=== PATIENT | female | born 1990 | race Caucasian/White ===

== ENCOUNTER 2023-08-17 10:34 | Day surgery (SDC) | payer OTHER, SELFPAY ==
--- NOTE | 2023-08-16 15:07 | W.ANESCHARGE ---
Anesthesia Charges Start Date/Time Anesthesia Start Date: 08/17/23 Anesthesia Start Time: 12:41 Stop Date/Time Anesthesia Stop Date: 08/17/23 Anesthesia Stop Time: 13:29
[2023-08-17] VITALS (8 sets, daily range): BP systolic 127–143; BP diastolic 69–94; PULSE 69–88; RESP 14–73; TEMP 36.8–37.3; O2SAT 95–98; BMI 33.5
--- OUTSIDE RECORDS SUMMARY | 2023-08-17 10:36 | XMS_ITS | Clinical Summary ---
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 30 tablet 04/02/2020 Active albuterol (PROVENTIL) 0.083 % neb solutionIndication s:Moderate persistent asthma without complication Inhale 3 mL (2.5 mg) via a nebulizer every 4 hours if needed for Shortness Of Breath or Wheezing. 75 mL 5 12/02/2021 Active fluticasone (50 mcg per actuation) nasal solution (FLONASE)Indicatio ns:Allergic rhinitis, unspecified seasonality, unspecified trigger Inhale 1 Paterson into affected nostril(s) once daily. 16 g 11 12/25/2021 Active cetirizine (ZyrTEC) 10 mg tablet Take 1 Tablet (10 mg) by mouth once daily. 0 03/08/2022 Active clindamycin 1% (CLEOCIN-T) 1 % gelIndications:Acn e vulgaris Apply topically to affected area(s) two times daily. 60 g 01/17/2023 Active fluticasone propion-salmeteroL (Advair Diskus) 500-50 mcg/Dose diskus inhalerIndications :Moderate persistent asthma without complication Inhale 1 Puff by mouth two times daily. 180 Each 3 01/17/2023 Active montelukast (SINGULAIR) 10 mg tabletIndications: Moderate persistent asthma without complication Take 1 Tablet (10 mg) by mouth once daily. 90 Tablet 3 01/17/2023 Active SUMAtriptan (IMITREX) 100 mg tabletIndications: Migraine without aura and without status migrainosus, not intractable Take 1 Tablet (100 mg) by mouth every 2 hours if needed for Migraine for up to 10 doses. Give at minimum 2hrs apart. Max Dose: 200mg per 24hrs. 10 Tablet 6 06/20/2023 Active vit no.124/iron/folic ( VITAMIN ORAL) Take 1 Tablet by mouth once daily. 03/25/2024 Active Ventolin HFA 90 mcg/actuation inhalerIndications :Mild intermittent asthma without complication INHALE 2 PUFFS BY MOUTH EVERY 4 HOURS IF NEEDED FOR SHORTNESS OF BREATH OR WHEEZING. 18 g 3 07/28/2023 Active predniSONE (DELTASONE) 20 mg tabletIndications: Severe persistent asthma, unspecified whether complicated Take 1 Tablet (20 mg) by mouth once daily. 5 Tablet 08/15/2023 Active albuterol HFA (Ventolin HFA) 90 mcg/actuation inhalerIndications :Mild intermittent asthma without complication Inhale 2 Puffs by mouth every 4 hours if needed for Shortness Of Breath or Wheezing. 1 Each 3 12/02/2021 4 Discontinued cephalexin (KEFLEX) 500 mg capsuleIndications :Complicated UTI (urinary tract infection) Take 1 Capsule (500 mg) by mouth three times daily for 7 days. 21 Capsule 07/27/2023 4 Active Problems Problem Noted Date Diagnosed Date Major depressive disorder, r ecurrent, severe without psychotic features 08/15/2023 07/25/2023 Overview: Estimated Date of Delivery: 03/09/24 Patient's last menstrual period was 06/03/2023 (exact date). GBS: 28wk labs: Last Tdap: 09/19/18 Last Flu vaccine: 01/28/23 OB Labs: No Known Allergies OB History Para Term AB Living 3 2 2 0 0 2 SAB IAB Ectopic Multiple Live Births 0 0 0 0 2 # Outcome Date GA Lbr Chip/2nd Weight Sex Delivery Anes PTL Lv 3 Current 2 Term 12/04/18 39w6d F VAGINAL JUSTIN EPIDURAL N RAKAN 1 Term 02/01/16 41w2d 07:00 / 00:38 4.14 kg (9 lb 2 oz) F Vag EPIDURAL N RAKAN Complications: Shoulder Dystocia Name: Alice Apgar1: 7 Apgar5: 9 Past Medical History: . Date ASTHMA 01/04/2007 CTS (carpal tunnel syndrome) with both pregnancies Depression post Kidney stone 2020 Migraine headache Rh incompatibility Varicella as a child Past Surgical History: . Laterality Date NO PREVIOUS SURGERY Problems (from 07/25/23 to present) Problem Noted Resolved 07/25/2023 by 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, JOAO No 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 RN ....07/25/2023 3:52 PM Severe persistent asthma, unspecified whether co mplicated 01/17/2023 Anxiety 08/21/2013 Acne 08/21/2013 Unspecified asthma(493.90) 01/04/2007 Resolved Problems Problem Noted Date Diagnosed Date Resolved Date Low-lying placenta 07/24/2018 9 05/22/2018 02/19/2019 Overview: Component Latest Ref Rng & Units 09/19/2018 11/10/2018 HEMOGLOBIN 12.0 - 16.0 g/dL 12.8 MCV 80 - 100 fL 88 TREPONEMA PALLIDUM Negative Negative Culture No Group B Streptococcus isolated. Estimated Date of Delivery: 12/05/18 Patient's last menstrual period was 03/06/2018 (exact date). Last Tdap- 09/19/2018 Last Flu vaccine- 04/28/2018 Glucose (GTT) result- Component Latest Ref Rng & Units 09/19/2018 HEMOGLOBIN 12.0 - 16.0 g/dL 12.2 MCV 80 - 100 fL 88 GLUCOSE,GESTATIONAL 65 - 139 mg/dL 101 20 week US: IMPRESSION: 1.Transverse lie with the head on the maternal left side. 2.No intrinsic abnormalities noted on anatomic survey. 3.Composite ultrasound age 19 weeks 4 days with FANY of 12/14/2018 with an earlier established FANY of 12/05/2018. Posteriorly low-lying placenta No Known Allergies Obstetric History T1 L1 SAB0 TAB0 Ectopic0 Multiple0 Live Births1 # Outcome Date GA Lbr Chip/2nd Weight Sex Delivery Anes PTL Lv 2 Current 1 Term 02/01/16 41w2d 07:00 / 00:38 4.14 kg (9 lb 2 oz) F Vag EPIDURAL N RAKAN Name: Alice Complications: Shoulder Dystocia Apgar1: 7 Apgar5: 9 Create lab flowsheet for OB labs- Component Latest Ref Rng & Units 04/28/2018 04/28/2018 04/28/2018 1:22 PM 1:22 PM 1:22 PM HEMOGLOBIN 12.0 - 16.0 g/dL 13.1 MCV 80 - 100 fL 85 ANTIBODY SCREEN Negative Negative SPECIMEN EXPIRATION DATE/TIME 05/01/18 23:59 RUBELLA IGG ANTIBODY Positive 1.32 HIV-1/HIV-2 ANTIBODY Non-Reactive Non-Reactive ABORH A Rh Negative HBSAG Nonreactive Nonreactive TREPONEMA PALLIDUM Negative Negative Past Medical History: Diagnosis Date ? ? ASTHMA 01/04/2007 Past Surgical History: Procedure Laterality Date ? ? NO PREVIOUS SURGERY No data on file. 2nd Problems (from 04/28/18 to present) Problem Noted Resolved Encounter for supervision of other normal , first trimester 04/29/2018 by Celena Lemus MD No Anjali Stevens RNC.....05/22/2018 8:01 AM Encounter for supervision of other normal , third trimester 04/29/2018 02/19/2019 Rh negative status during pr egnancy in second trimester 10/24/2015 04/29/2017 Supervision of normal 07/04/2015 04/29/2017 Overview: Rh Negative. Unknown gender of baby TDaP 10/24/2015 Encounters Date Type Department Care Team Description 08/15/2023 2:15 PM CDT Preop Visit [facility] [address] [place] [address] Celena Lemus MD Pre-Op Exam ([facility] Dr. Cortes 08/17/23) 08/15/2023 Travel 08/11/2023 Medical Messaging [facility] [address] [place] [address] Celena Lemus MD Miscarriage 08/10/2023 1:00 PM CDT Ancillary Procedure [facility] [address] [place] [address] 08/10/2023 Travel 08/10/[address] [address] Celena Lemus MD Appointment 08/03/[address] [address] Celena Lemus MD Questions 08/03/[address] [address] Celena Lemus MD Refill Request (Ventolin Hfa) 07/27/[address] [address] Celena Lemus MD Refill Request (Ventolin Hfa) 07/27/2023 Orders Only [address] [address] Melly Wyman MD <No scans attached> 07/25/2023 2:30 PM CDT OB Encounter [address] [address] Education (OB) 07/25/[address] [address] 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, cotton 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 Management (For migraines in ) 07/25/2023 Travel 06/14/[address] [address] Celena Lemus MD Refill Request (Sumatriptan) from Last 3 Months Immunizations Name Administration Dates Next Due DTP 11/30/1989,1988,1988 ,1988 DTaP 07/01/1993 HIB HbOC (HibTITER) 05/30/1991 Hepatitis A (Peds) 11/24/2006,05/16/2006 Hepatitis B (Peds) 09/10/1999,04/10/1999, 999 Human Papilloma Virus Vaccine 10/10/2007, 007,05/16/2006 03/26/2007 Influenza, IIV4 01/28/2023, 2,03/13/2020,01/15/2019, 04/28/2018,03/15/2016,05/27/2015 MMR 12/13/2000,11/30/1989 Oral Polio Vaccine 07/01/1993,11/30/1989, 989,1988 Td (Age >=7 Years) 11/28/2002 Tdap 09/19/2018,10/24/2015,03/25/2012 Tuberculin (PPD) 01/30/2007 Family History Medical History Relation Name Comments Asthma Brother Asthma Sister Relation Name Status Comments Brother Sister Social History Tobacco Use Types Packs/Day Years Used Date Smoking Tobacco: Former Cigarettes 1 10 0 09/23/2004 - 09/23/2014 Smokeless Tobacco: Never Tobacco Cessation:Counseling Given: Not Answered Alcohol Use Standard Drinks/Week Comments Not Currently 0 (1 standard drink = 0.6 oz pur e alcohol) monthly PHQ-2 Answer Date Recorded PHQ-2 TOTAL SCORE 6 04/05/2023 Social Connections Answer Date Recorded Frequency of Communication with Friends and Fami ly 0 01/17/2023 Financial Resource Strain Answer Date R ecorded Difficulty of Paying Living Expenses 3 01/17/2023 Difficulty of Paying Living Expenses Not on file 01/17/2023 Food Insecurity Answer Date Recorded Worried About Running Out of Food in the Last Ye ar 1 01/17/2023 Transportation Needs Answer Date Record ed Lack of Transportation (Medical) 1 01/17/2023 Housing Stability Answer Date Recorded Unable to Pay for Housing in the Last Year 1 01/17/2023 Sex and Gender Information Value Date Recorded Sex Assigned at Not on file Gender Identity Not on file Sexual Orientation Not on file Obstetrics History Para Term AB IAB SAB Ectopic Multiple Livin g Live Births 3 2 2 2 2 Date Outcome GA Total Labor Labor/2nd/3rd Weight Sex Delivery Anes PTL Rakan A1 A5 Name Cl in 01/31 Term 41w 2d 7h 44m 7h 00m/0h 38m/0h 06m 4.14 kg (9 lb 2 oz) F Vag Epidu ral N Dottie ng 7 9 Mansi sa Tappe r Complications:Shoulder Dysto hawa 12/04 Term 39w 6d 5h 00m F VAGINAL JUSTIN Epidu ral N Dottie ng Tappe r Complications:None Delivery Location:[facility] Summary Episode Dates Number of Fetuses Estimated Date of Delivery 07/25/2023 - Present (08/17/2023) 03/09/2024 (set by 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 RN on 07/25/2023 based on Alternate FANY Entry) Dating Summary Based On FANY GA Diff Last Menstrual Period on 06/03/2023 (Exact Date) 03/09/2024 Same Alternate FANY Entry 03/09/2024 Working Vitals Pregravid Weight Height TWG (As of 08/17/2023) Pregrav id BMI 1.695 m (5' 6.75) Notes Progress Notes - OB Encounte r - 07/25/2023 - GA:7w3d 07/25/2023 - 7w3d - 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 RN SUBJECTIVE: Nguyen Sandhu is a 33 y.o. female, , who presents for confirmation and ob education. Patient presents to the clinic alone. Had positive test at home. This was Planned, Desired. Patient was not on contraception. 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 MENSTRUAL HISTORY: Patient's last menstrual period was 06/03/2023 (exact date).: Cycle Regularity: regular, every 31 days Past Medical History: . Date ASTHMA 01/04/2007 CTS (carpal tunnel syndrome) with both pregnancies Depression post Kidney stone 2020 Migraine headache Rh incompatibility Varicella as a child OB History Para Term AB Living 3 2 2 2 SAB IAB Ectopic Multiple Live Births 2 # Outcome Date GA Lbr Chip/2nd Weight Sex Delivery Anes PTL Lv 3 Current 2 Term 12/04/18 39w6d F VAGINAL JUSTIN EPIDURAL N RAKAN 1 Term 02/01/16 41w2d 07:00 / 00:38 4.14 kg (9 lb 2 oz) F Vag EPIDURAL N RAKAN Complications: Shoulder Dystocia 5P'S SUBSTANCE ABUSE SCREEN FOR ALCOHOL, DRUGS AND TOBACCO: Did any of your parents have a problem with using alcohol or drugs? No Do any of your friends (peers) have problems with drug or alcohol use? No Does your partner have a problem with drug or alcohol use? No Before you knew you were , how often did you drink beer, wine, wine coolers or liquor or use any kind of drug? Rarely In the past month, how often did you drink beer, wine, wine coolers or liquor or use any kind of drug? Not at all How much did you smoke, vape or use tobacco or nicotine in any form before you knew you were ? Don't Smoke, Vape or use Tobacco Genetic Screening Genetic Screening/Teratology Counseling- Includes patient, baby's father, or anyone in either family with: Patient's age 35 years or older as of estimated date of delivery: Yes Thalassemia (Kyrgyz, Kyrgyz, Mediterranean, or background): MCV less than 80: No Neural tube defect (Meningomyelocele, Spina bifida, or Anencephaly): No Congenital heart defect: No Down syndrome: No Librado-Sachs (Ashkenazi Holiness, Cajun, Syriac Palestinian): No Urszula disease (Ashkenazi Holiness): No Familial dysautonomia (Ashkenazi Holiness): No Sickle cell disease or trait (): No Hemophilia or other blood disorders: No Muscular dystrophy: No Cystic fibrosis: No Michele's chorea: No Intellectual disability and/or autism: Yes (Comment: dad's sister) If yes, was the person tested for Fragile X?: No Other inherited genetic or chromosomal disorder: No Maternal metabolic disorder (eg. Type 1 diabetes, PKU): No Patient or baby's father had child with defects not listed above: No Recurrent loss, or a stillbirth: No Medications (including supplements, vitamins, herbs, or OTC drugs)/illicit/recreational drugs/alcohol since last menstrual period: No CURRENT MEDICATIONS: Current Outpatient Medications Medication Sig albuterol (PROVENTIL) 0.083 % neb solution Inhale 3 mL (2.5 mg) via a nebulizer every 4 hours if needed for Shortness Of Breath or Wheezing. albuterol HFA (Ventolin HFA) 90 mcg/actuation inhaler Inhale 2 Puffs by mouth every 4 hours if needed for Shortness Of Breath or Wheezing. cetirizine (ZyrTEC) 10 mg tablet Take 1 Tablet (10 mg) by mouth once daily. clindamycin 1% (CLEOCIN-T) 1 % gel Apply topically to affected area(s) two times daily. fluticasone (50 mcg per actuation) nasal solution (FLONASE) Inhale 1 Paterson into affected nostril(s) once daily. fluticasone propion-salmeteroL (Advair Diskus) 500-50 mcg/Dose diskus inhaler Inhale 1 Puff by mouth two times daily. meclizine (ANTIVERT) 25 mg tablet Take 1 tablet by mouth 3 times daily if needed. montelukast (SINGULAIR) 10 mg tablet Take 1 Tablet (10 mg) by mouth once daily. [START ON 03/25/2024] vit no.124/iron/folic ( VITAMIN ORAL) Take 1 Tablet by mouth once daily. SUMAtriptan (IMITREX) 100 mg tablet Take 1 Tablet (100 mg) by mouth every 2 hours if needed for Migraine for up to 10 doses. Give at minimum 2hrs apart. Max Dose: 200mg per 24hrs. No current facility-administered medications for this visit. Medications have been reviewed by me and are current to the best of my knowledge and ability. ALLERGIES: Patient has no known allergies. OBJECTIVE: Ht 1.695 m (5' 6.75) Wt 93.7 kg (206 lb 9.6 oz) LMP 06/03/2023 (Exact Date) BMI 32.60 kg/m?? ,URINE (no units) Date Value 07/11/2020 Negative ASSESSMENT/PLAN: No diagnosis found. EDUCATION/PATIENT INSTRUCTIONS - Advised patient to start/continue vitamin. - Discussed risk of using alcohol, tobacco, other drugs in . - Discussed healthy lifestyle in . - Provided copy of [facility] book and book inserts, discussed elsh-tso-syhhjbe medications, and follow up. - Encouraged patient to call clinic at [phone] with any vaginal bleeding, fluid leaking from vagina, severe abdominal pain, nausea with severe vomiting, fever higher than 100.4F, painful urination, headache not relieved by Tylenol, or other concerns - labs completed with today's visit. 07/25/2023 - Patient informed to schedule 1st trimester dating ultrasound between 7-10 weeks. - Initial OB appointment with FP/OB scheduled. PHQ-9, and COVID-19 vaccine discussion to be completed at this visit. Future Appointments Date Time Provider Department Center 08/22/2023 3:30 PM Celena Lemus MD [facility] 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 RN .................... 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 Oxygen Saturation 99% 08/15/2023 2:21 PM CDT Inhaled Oxygen Concentration - - Weight 94.3 kg (208 lb) 08/15/2023 2:21 PM CDT Height 169.5 cm (5' 6.75) 08/15/2023 2:21 PM CD T Body Mass Index 32.82 08/15/2023 2:21 PM CDT Plan of Treatment Upcoming Encounters Date Type Department Care Team (Late st Contact Info) Description 08/22/2023 3:30 PM CDT OB Encounter [facility] [address] [place] [address] Celena Lemus MD [address] [place] [address] Health Maintenance Due Date Last Done Comments Pneumococcal series for age 6-64 (1 of 2 - PCV) 1994 COVID-19 vaccine series ( season) 2022 Pap test for age 21-65 05/19/2023 9, 05/19/2018, 07/04/2015, Additional history exists Influenza for age 9-49 12/25/2023 3, 02/11/2022, 03/13/2020, Additional history exists Depression screening for age 12+ 04/05/2024 04/05/2023, 03/29/2023, 03/10/2023, Additional history exists BMI (ht and wt on same day) for age 18+ 08/14/2024 08/15/2023, 07/25/2023, 01/17/2023, Additional history exists Tetanus booster 09/19/2028 09/19/2018, 04/2015, 03/25/2012, Additional history exists Tdap Completed 09/19/2018, 04/2015, 03/25/2012 HIV for age 15-65 Completed 07/25/2023, , 05/27/2015 Hepatitis C screening for ag e 18-79 Completed 07/25/2023, 05/27/2015 Procedures Procedure Name Priority Date/Time Associated Diagnosis Comments US OB 1ST TRI SINGLE TA AND TV Routine 08/10/2023 1:24 PM CDT Less than 8 weeks gestation of UA W/ SEDIMENT EXAM REFLEXED PER CRITERIA Routine 07/25/2023 3:43 PM CDT Less than 8 weeks gestation of GC CHLAMYDIA TRACH PROBE Routine 07/25/2023 3:43 PM CDT Less than 8 weeks gestation of URINE CULTURE Routine 07/25/2023 3:43 PM CDT Less than 8 weeks gestation of TYPE & SCREEN Routine 07/25/2023 3:40 PM CDT Less than 8 weeks gestation of ANTI HCV Routine 07/25/2023 3:40 PM CDT Less than 8 weeks gestation of HBSAG (HBS) Routine 07/25/2023 3:40 PM CDT Less than 8 weeks gestation of TREPONEMA PALLIDUM Routine 07/25/2023 3: 40 PM CDT Less than 8 weeks gestation of RUBELLA IMMUNE STATUS Routine 07/25/2023 3:40 PM CDT Less than 8 weeks gestation of ANTI HIV 1/2 Routine 07/25/2023 3:40 PM CDT Less than 8 weeks gestation of CBC W PLT NO DIFF Routine 07/25/2023 3:4 0 PM CDT Less than 8 weeks gestation of HORTICULTURE PROFESSOR THIN PREP PAP SCREEN IMAGED Routine 05/19/2018 9:15 AM SOFTWARE TOOLS ENGINEER Cervical cancer screening from Last 3 Months or Most Recently Relevant to Health Maintenance Results * US OB 1ST TRI SINGLE TA AND TV (08/10/2023 1:24 PM CDT) Anatomical Region Laterality Modality Ultrasound 08/10/2023 2:02 PM CDT Impressions 08/10/2023 2:02 PM CDT Single intrauterine gestational sac with embryo present and crown-rump length measuring 1.5 centimeters, corresponding with a 7 week and 6 day gestation. No heart tones are noted. Findings are consistent with failure. Dictated by Babatunde Scott MD @ 08/10/2023 2:02:16 PM (Electronically Signed) Narrative 08/10/2023 2:02 PM CDT For Patients: ??As a result of the 21st Century Cures Act, medical imaging exams and procedure reports are released immediately into your electronic medical record. ??You may view this report before your referring provider. ??If you have questions, please contact your health care provider. INDICATION: Dating and viability TECHNIQUE: Ultrasound OB pelvis transabdominal and transvaginal. ??Real-time parada-scale imaging of the pelvis was performed. COMPARISON: None. FINDINGS: There is a single intrauterine gestation. The embryo`s crown rump length measurement of 1.5 cm and corresponds to a gestational age of 7 weeks and 6 days. No heart tones are noted. There is a normal appearing yolk sac. There is a small perigestational hemorrhage measuring approximally 1.2 x 0.6 x 2.3 centimeters. The ovaries are of normal size. There are no suspicious fluid collections noted in the cul-de-sac. Procedure Note Babatunde Scott MD - 08/10/2023 For Patients: As a result of the Cures Act, medical imagingexams and procedure reports are released immediately into your electronicmedical record. You may view this report before your referring provider.If you have questions, please contact your health care provider. INDICATION: Dating and viability TECHNIQUE: Ultrasound OB pelvis transabdominal and transvaginal. Egnh-aqvucatd-polhn imaging of the pelvis was performed. COMPARISON: None. FINDINGS: There is a single intrauterine gestation. The embryo`s crown rump lengthmeasurement of 1.5 cm and corresponds to a gestational age of 7 weeks and6 days. No heart tones are noted. There is a normal appearing yolk sac. There is a small perigestationalhemorrhage measuring approximally 1.2 x 0.6 x 2.3 centimeters. The ovaries are of normal size. There are no suspicious fluid collectionsnoted in the cul-de-sac. IMPRESSION: Single intrauterine gestational sac with embryo present and crown-rumplength measuring 1.5 centimeters, corresponding with a 7 week and 6 daygestation. No heart tones are noted. Findings are consistent withpregnancy failure. Dictated by Babatunde Scott MD @ 08/10/2023 2:02:16 PM (Electronically Signed) Melly Wyman MD US * HORTICULTURE PROFESSOR PROBE - GC CHLAMYDIA DNA PCR [[id number]] (07/25/2023 3:43 PM CDT) CHLAMYDIA PROBE Negative 10:55 AM CDT [facility] N GONORRHOEAE PROBE Negative 07/26/2023 10:55 AM CDT [facility] Other URINE SPECIMEN / Unknown Non-Blood / Unknown 07/25/2023 3:43 PM CDT 07/25/2023 3:43 PM CDT Melly DOSS GY Performing Organization Address City/State/[facility] Co de Phone Number [facility] [address] [place] [address], * (ABNORMAL) URINE CULTURE (07/25/2023 3:43 PM CDT) CULTURE RESULT(A) 07/28/2023 7:04 AM CDT [facility] CULTURE >100,000 CFU/mL Klebsiella pneumoniae 07/28/2023 7:04 AM CDT [facility] Urine URINE SPECIMEN / Unknown Non-Blood / Unknown 07/25/2023 3:43 PM CDT 07/25/2023 3:43 PM CDT Narrative Organism Antibiotic Method Susceptibility Klebsiella pneumoniae TRIMETHOPRIM/SULF <=1/19: S Klebsiella pneumoniae AMPICILLIN >=32: R Klebsiella pneumoniae CEFAZOLIN-UC <=4: S Comment:Cefazolin-UC interpretations are for therapy of uncomplicated UTIs due to E.coli, K.pneumoniae, or P.mirablis. Cefazolin breakpoint is used as a surrogate to predict results for the oral agents - cefdinir, cefuroxime, and cephalexin, when used for therapy of uncomplicated UTIs due to E coli, K, pneumoniae, and P. mirabilis. The FDA recommends cefadroxil susceptibility can be deduced from cefazolin. Klebsiella pneumoniae GENTAMICIN <=1: S Klebsiella pneumoniae CEFTRIAXONE <=1: S Klebsiella pneumoniae CEFTAZIDIME <=1: S Klebsiella pneumoniae LEVOFLOXACIN <=0.12: S Klebsiella pneumoniae CIPROFLOXACIN <=0.25: S Klebsiella pneumoniae PIPERACILLIN/TAZO <=4: S Klebsiella pneumoniae AMPICILLIN/SULBACTAM 8: S Klebsiella pneumoniae CEFEPIME <=1: S Klebsiella pneumoniae TOBRAMYCIN <=1: S Klebsiella pneumoniae MEROPENEM <=0.25: S Klebsiella pneumoniae NITROFURANTOIN 64: I Melly Sarahi Wyman MD MICROBIOLO GY [facility] [address] [place] [address], [place] * URINALYSIS W REFLEX MICROSCOPIC IF POSITIVE [91944.2] (07/25/2023 3:43 PM CDT) COLOR Yellow Yellow Color 07/25/2023 3:53 PM CDT [facility] CLARITY Clear Clear Clarity 07/25/2023 3:53 PM CDT [facility] SPECIFIC GRAVITY,URINE 1.015 1.010, 1.015, 1.020, 1.025 07/25/2023 3:53 PM CDT [facility] PH,URINE 6.0 6.0, 7.0, 8.0, 5.5, 6.5, 7.5, 8.5 07/25/2023 3:53 PM CDT [facility] UROBILINOGEN, QUALITATIVE Normal Normal EU/dl 07/25/2023 3:53 PM CDT [facility] PROTEIN, URINE Negative Negative mg/dL 07/25/2023 3:53 PM CDT [facility] GLUCOSE, URINE Negative Negative mg/dL 07/25/2023 3:53 PM CDT [facility] KETONES,URINE Negative Negative mg/dL 07/25/2023 3:53 PM CDT [facility] BILIRUBIN,URI NE Negative Negative 07/25/2023 3:53 PM CDT [facility] OCCULT BLOOD,URINE Negative Negative 07/25/2023 3:53 PM CDT [facility] NITRITE Negative Negative 07/25/2023 3:53 PM CDT [facility] LEUKOCYTE ESTERASE Negative Negative 07/25/2023 3:53 PM CDT [facility] Urine URINE SPECIMEN / Unknown Non-Blood / Unknown 07/25/2023 3:43 PM CDT 07/25/2023 3:43 PM CDT Melly Wyman MD URINE Performing Organization Address City/[facility]/ZIP Co de Phone Number [facility] [address] [place] [address], [place] [phone] * TREPONEMA PALLIDUM (07/25/2023 3:40 PM CDT) TREPONEMA PALLIDUM Non-Reacti ve Non-Reacti ve 07/26/2023 2:39 PM CDT [facility] Blood BLOOD SPECIMEN / Unknown Venipuncture / Unknown 07/25/2023 3:40 PM CDT 07/25/2023 3:41 PM CDT Melly Wyman MD SEND OUTS Performing Organization Address City/[facility]/ZIP Co de Phone Number [facility] [address] [place] [address], * RUBELLA IMMUNE STATUS (07/25/2023 3:40 PM CDT) Pathologist [facility] INTERPRETATION Positive 07/27/2023 8:34 AM CDT [facility] Comment:Presence of detectab le IgG antibodies. A positive result generally indicates exposure to the virus or previous vaccination, but is not an indication of active infection or stage of disease. RUBELLA IGG ANTIBODY 1.04 >=1.00 Index 07/27/2023 8:34 AM CDT [facility] Blood BLOOD SPECIMEN / Unknown Venipuncture / Unknown 07/25/2023 3:40 PM CDT 07/25/2023 3:41 PM CDT Narrative [facility] - 07/27/2023 8:34 AM CDT ??<0.90 ? Negative ?? 0.90-0.99 ?? Equivocal >=1.0 ?Positive Melly Wyman MD SEND OUTS [facility] [address] [place] [address], * TYPE AND SCREEN (07/25/2023 3:40 PM CDT) ABORH A Rh Negative 07/25/2023 9:42 PM CDT [facility] BLOOD BANK ANTIBODY SCREEN Negative Negative 07/25/2023 9:42 PM CDT [facility] BLOOD BANK SPECIMEN EXPIRATION DATE/TIME 07/28/23 23:59 07/25/2023 9:42 PM CDT [facility] Blood BLOOD SPECIMEN / Unknown Venipuncture / Unknown 07/25/2023 3:40 PM CDT 07/25/2023 3:42 PM CDT Melly Wyman MD BLOOD BANK [facility] B[facility]OD BANK [address] [place] [address], * HBSAG (HBS) (07/25/2023 3:40 PM CDT) Pathologist [facility] HBSAG Nonreactive Nonreactive 07/26/2023 2:31 PM CDT [facility] Blood BLOOD SPECIMEN / Unknown Venipuncture / Unknown 07/25/2023 3:40 PM CDT 07/25/2023 3:41 PM CDT Melly Wyman MD SEND OUTS [facility] [address] [place] [address], * ANTI HCV (07/25/2023 3:40 PM CDT) HEPATITIS C ANTIBODY Non-Reacti ve Non-React janis 07/26/2023 2:29 PM CDT [facility] Comment:Please note, per www .CDC.gov: If a patient is known to be at high risk of HCV infection, or is symptomatic, and the physician's suspicion of HCV infection is high, HCV RNA testing is often employed and is of diagnostic value, even after an initial negative anti-HCV test result. Blood BLOOD SPECIMEN / Unknown Venipuncture / Unknown 07/25/2023 3:40 PM CDT 07/25/2023 3:41 PM CDT Melly Wyman MD SEND OUTS [facility] [address] [place] [address], * CBC W PLT NO DIFF (07/25/2023 3:40 PM CDT) WHITE BLOOD COUNT 8.5 4.5 - 11.0 thou/cu mm 07/25/2023 3:53 PM CDT [facility] RED BLOOD COUNT 4.63 4.00 - 5.20 mil/cu mm 07/25/2023 3:53 PM CDT [facility] HEMOGLOBIN 13.5 12.0 - 16.0 g/dL 07/25/2023 3:53 PM CDT [facility] HEMATOCRIT 39.2 33.0 - 51.0 % 07/25/2023 3:53 PM CDT [facility] MCV 85 80 - 100 fL 07/25/2023 3:53 PM CDT [facility] MCH 29.2 26.0 - 34.0 pg 07/25/2023 3:53 PM CDT [facility] MCHC 34.4 32.0 - 36.0 g/dL 07/25/2023 3:53 PM CDT [facility] RDW 13.9 11.5 - 15.5 % 07/25/2023 3:53 PM CDT [facility] PLATELET COUNT 285 140 - 440 thou/cu mm 07/25/2023 3:53 PM CDT [facility] MPV 9.5 6.5 - 11.0 fL 07/25/2023 3:53 PM CDT [facility] Blood BLOOD SPECIMEN / Unknown Venipuncture / Unknown 07/25/2023 3:40 PM CDT 07/25/2023 3:41 PM CDT Melly Wyman MD HEMATOLOGY [facility] [address] [place] [place] [address], * ANTI HIV 1/2 (07/25/2023 3:40 PM CDT) [facility] HIV-1/HIV-2 SCREEN Non-Reacti ve Non-Reacti ve 07/26/2023 2:31 PM CDT [facility] Comment:HIV-1 p24 and HIV-1/ HIV-2 Ab Not Detected. Blood BLOOD SPECIMEN / Unknown Venipuncture / Unknown 07/25/2023 3:40 PM CDT 07/25/2023 3:41 PM CDT Melly Wyman MD SEND OUTS [facility] [address] [place] [address], * HORTICULTURE PROFESSOR THIN PREP PAP SCREEN IMAGED (05/19/2018 9:15 AM SOFTWARE TOOLS ENGINEER) [facility] Case Report Gynecologic Cytology Report ? Case: [id number] ? Authorizing Provider: ??Celena Lemus MD Collected: ? 05/19/2018 0915 ? Ordering Location: ? [facility] ?? Received: ?05/19/2018 0920 ? Clinic ? First Screen: ?Jacob, Ann E ? Specimen: ?HORTICULTURE PROFESSOR ThinPrep Vial Screening, Cervical ? 05/30/2018 2:08 PM [facility] INTERPRETATION/ RESULT NEGATIVE FOR INTRAEPITHELIAL LESION OR MALIGNANCY (NIL) (none) 05/30/2018 2:08 PM [facility] IMEN ADEQUACY Satisfactory for evaluation Endocervical component present 05/30/2018 2:08 PM [facility] HPV REQUEST HPV and PAP 05/30/2018 2:08 PM SOFTWARE TOOLS ENGINEER [facility] Date of LMP 03/06/18 05/30/2018 2:08 PM [facility] Last Pap Date 07/04/15 05/30/2018 2:08 PM SOFTWARE TOOLS ENGINEER [facility] Last Pap Result NIL 9 2:08 PM [facility] Abnormal Pap or [place] Bx in last 5 years No 05/30/2018 2:08 PM [facility] Menstrual Status Irregular Periods 05/30/2018 2:08 PM SOFTWARE TOOLS ENGINEER [facility] [place] Bx Done Today No 05/30/2018 2:08 PM [facility] Additional Information None given 05/30/2018 2:08 PM [facility] Automated Review Successful 05/30/2018 2:08 PM [facility] Comment:Specimen processed s uccessfully by automated manager of finance device, ThinPrep Imaging System, [employer] ANCILLARY TESTING HORTICULTURE PROFESSOR HPV Ordered, Please see separate report 05/30/2018 2:08 PM SOFTWARE TOOLS ENGINEER [facility] Note The pap test is a screening technique, not a diagnostic procedure. ??It is used primarily to screen for squamous cancers and precursor lesions. ??Published studies have shown that it is subject to both false negative and false positive results. ??The pap test should not be used as the sole means to diagnose or exclude pre-malignant and malignant lesions. Cytology is screened and interpreted at [facility] - [address], [place] [address] and [facility] - [address]; [place] [address] and [facility] - [address]; [place] [address] and [facility] [address]; [place] [address] 05/30/2018 2:08 PM SOFTWARE TOOLS ENGINEER [facility] Other (Cervical) Non-Blood / Unknown 05/19/2018 9:15 AM SOFTWARE TOOLS ENGINEER 05/19/2018 9:20 AM SOFTWARE TOOLS ENGINEER Celena Lemus MD PATHOLOGY/CYTOL OGY [facility] [address] [place] [address], from Last 3 Months or Most Recently Relevant to Health Maintenance Care Teams Experimental Rocket Sled Mechanic Relationship Specialty Start Date End Date Celena Lemus MD [address] [place] [address] PCP - General Family Practice 02/22/11 Diego Moore DPM [address] [place] [address] PODIATRY Podiatry 09/11/12
--- NOTE | 2023-08-17 10:53 | W.PM.H&PU ---
History & Physical Update History & Physical Update H&P Reviewed and patient assessed: No changes noted H&P Updates: Reviewed surgical plan in detail this morning. Discussed risks/benefits and anticipated post-op course. Risks including bleeding, infection, damage to surrounding structures, retained POC and uterine scarring were again reviewed.
[2023-08-17] MEDS: LACTATED RINGERS 1000 ML 1,000 ML 100 ML IV (11:30)
[2023-08-17] MEDS: SODIUM CHLORIDE 0.9 % (FLUSH) 10 ML SYRINGE IVF (11:30)
[2023-08-17] MEDS: DOXYCYCLINE HYCLATE 100 MG 200 MG PO (12:08)
[2023-08-17] MEDS: BUPIVACAINE 0.5% 30 ML INJECTION (13:10)
--- NOTE | 2023-08-17 13:33 | W.ANESCHARGE ---
Anesthesia Charges Start Date/Time Anesthesia Start Date: 08/17/23 Anesthesia Start Time: 12:41 Stop Date/Time Anesthesia Stop Date: 08/17/23 Anesthesia Stop Time: 13:29
--- NOTE | 2023-08-17 14:18 | W.PM.GYNPROC ---
Procedure Note Time Seen by Provider: 13:18 Date of procedure: 08/17/23 Will [facility] bill your pro fee for this procedure?: Yes Pre-op diagnosis: Missed Procedure: Suction dilation and curettage Complications: None Surgeon: Akash Cortes MD Estimated blood loss (mL): 50 IV fluids (mL): 500 Urine Output (mL): 300 Pathology: specimen obtained, sent to pathology Condition: stable Disposition: same day Findings: Pre-procedure TAUS confirmed presence of non-viable IUP Post-procedure TAUS confirms thin endometrial stripe Procedure Description: After verifying written informed consent, the patient was taken to the operating room. A time-out was completed to verify correct patient and procedure. Anesthesia was induced and found to be adequate. She was placed in the dorsal high lithotomy position in candy-cane stirrups with care taken to avoid neurologic injury. She did receive a preoperative dose of doxycycline per protocol. She additionally received RhoGAM in preop. She was prepared and draped in the usual sterile fashion. A surgical pause was conducted to confirm correct patient and procedure. The cervix was identified and grasped with a single-tooth tenaculum. A paracervical block was applied with 0.5% bupivicaine, total 20mL. The cervix was serially dilated to accommodate a No. 8 curved curette. The curette was then introduced and advanced to the uterine fundus. The intrauterine contents were aspirated until there was no further return of tissue across 3 passes. Following this, satisfactory uterine cri in all four quadrants. One additional pass was made with the suction curette with no tissue return. Transabdominal ultrasound was performed documenting a thin, uniform endometrial stripe. Tenaculum was removed from the cervix. Cervix was made hemostatic with gentle pressure. Bimanual exam confirmed excellent uterine tone. Sponge and instrument count was correct. The patient was transferred to the recovery room in excellent condition. Products of conception were submitted to pathology. Surgical debrief was performed. Procedure as listed. QBL 50mL. Urine output via in and out catheterization was 300 mL. Procedure was well tolerated with no apparent complications.
== END 2023-08-17 14:56 | disposition home or self-care (01) ==
PROVIDERS: PCP Family Medicine; Visit Provider Obstetrics & Gynecology
PROC: (CPT 59820; principal; 2023-08-17 12:00)
DX: O02.1 Missed abortion (principal)
CPT/HCPCS: 59820; 00952; 01965; 36415; 85018; 86850; 86900; 86901; 88305; A9270; J0665; J1100; J1885; J2250; J2405; J2704; J2791; J3010; J3490; J7120

== ENCOUNTER 2024-09-20 17:10 | Outpatient (CLI) | payer OTHER, SELFPAY ==
[2024-09-20 17:18] VITALS: PULSE 97; O2SAT 96
[2024-09-20 17:23] VITALS: BP 125/74; PULSE 76; RESP 22; TEMP 36.6
--- NOTE | 2024-09-20 20:03 | PC.OBNST ---
NST Note NST Note Start: 09/20/24 17:31 Freq: ONCE Status: Active Protocol: Document 09/20/24 18:30 BRM (Rec: 09/20/24 20:03 BRM [id number]) NST Note 4 Para (# of births) 2 EDC 10/26/24 Gestational Age In 34 Weeks & 6 Days Weeks & Days Patient Presented Observation after an injury with Complaint(s) of Other Complaints Patient was playing tag with her children, she turned and tripped over her foot falling onto her right shoulder. Denies hitting abdomen. Does state she has a soreness type of pain right under her ribs, but is not tender to touch. Report + movement. - gushes of fluid, vaginal bleeding, or vaginal discharge. Reactive Yes Appropriate for Yes Gestational Age JOOA Linares Date 09/20/24 Reactive Yes Appropriate for Yes Gestational Age JOAO Stark RN Date 09/20/24 OB NST charge Yes Complete NST Note Yes via Write Note The provider's electronic signature indicates the NST is reactive/appropriate for gestational age. *Note to provider: If an addendum is required, open the patient's chart and click on the note under the Nurse/Allied Health tab.
== END 2024-09-20 18:30 | disposition home or self-care (01) ==
LOC: OB OUT 17:11 → OB 17:11
PROVIDERS: PCP Family Medicine; Visit Provider Family Medicine
DX: O26.893 Other specified pregnancy related conditions, third trimester (principal); T14.90XA Injury, unspecified, initial encounter; W01.0XXA Fall on same level from slipping, tripping and stumbling without subsequent striking against object, initial encounter; Y92.009 Unspecified place in unspecified non-institutional (private) residence as the place of occurrence of the external cause; Z3A.34 34 weeks gestation of pregnancy
CPT/HCPCS: 59025; G0463

== ENCOUNTER 2024-10-30 17:09 | Inpatient (IN) | payer OTHER, SELFPAY ==
[2024-10-30 17:16] VITALS: BMI 13.1
[2024-10-30 17:23] VITALS: BP 131/89; PULSE 103; RESP 18; TEMP 36.8
[2024-10-30 18:24] LABS: Hematocrit 36.5 % (33.0-51.0); Hemoglobin* 12.1 gm/dL (12.0-16.0); Immature Granulocytes Abs Auto 0.02 K/uL (0.00-0.30); Immature Granulocytes Pct Auto 0.2 %; Lymphocytes Absolute Auto 1.99 K/uL (0.90-2.90); Mean Corpuscular HGB Conc 33 gm/dL (32-36); Mean Corpuscular Hemoglobin 29 pg (26-34); Mean Corpuscular Volume 87 fL (80-100); RDW Coefficient of Variation % 13.4 % (11.5-15.5); Red Blood Count 4.19 m/uL (4.00-5.20); White Blood Count* 8.61 K/uL (4.50-11.00)
[2024-10-30 18:33] LABS: Slide Review Reflex No
--- NOTE | 2024-10-30 18:43 | PM.OBHPLI ---
OB - H&P: HPI Labor/Induction History of Present Illness Date Seen: 10/30/24 Chief Complaint: The patient is a 34 year old 4 para 2010 at 38+6 weeks gestation by LMP, c/w 7 week US, who presents for cervical ripening prior to IOL for AMA and prior shoulder dystocia. Chief complaint: Hx Shoulder Dystocia & Hx of child loss Narrative: Nguyen Sandhu is a 34 year old at 38+6 weeks by LMP c/w with 7 week US here for IOl for AMA and prior shoulder dystocia. otherwise uncomplicated. 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 Patient has been having intermittent contractions, no LOF. Last growth US at 32 weeks was 2115 g (66%) with abdominal circumference at 82%. History of Present Dating criteria: based on LMP care: good care Ultrasounds: normal 1st trimester US, normal mid trimester US and abnormal US findings ( septate gallbladder) Labs Blood type: A (-) negative Rubella: immune RPR/VDLR: nonreactive GBS status: negative HBsAG: negative Review of Systems Status of ROS: Reports: 10 or more systems reviewed and unremarkable except as noted in History and below Meds Home Medications and Allergies Home Medications ?Medication ?Instructions ?Recorded ?Confirmed ?Type albuterol sulfate 90 mcg/actuation 2 puff inhalation Q4H PRN 08/15/23 10/30/24 History aerosol inhaler (Ventolin HFA) cetirizine 10 mg tablet (Zyrtec) 10 mg PO QDAY PRN 08/15/23 10/30/24 History fluticasone 500 mcg-salmeterol 50 1 inh inhalation Q12H 08/15/23 10/30/24 History mcg/dose blistr powdr for inhalation montelukast 10 mg tablet 10 mg PO DAILY 08/15/23 10/30/24 History sumatriptan succinate 100 mg tablet 100 mg PO Q2H PRN migraine 08/15/23 10/30/24 History Held on 09/20/24. Instructions: meclizine 25 mg tablet 25 mg PO TID PRN 08/16/23 10/30/24 History prednisone 20 mg tablet 20 mg PO DAILY 08/16/23 10/30/24 History Held on 09/20/24. Instructions: asthma action plan Allergies Allergy/AdvReac Type Severity Reaction Status Date / Time No Known Drug Allergies Allergy Verified 09/20/24 17:30 OB - H&P: Exam Physical Exam: Vital signs: Pulse BP 103 H 131/89 10/30/24 17:23 10/30/24 17:23 Constitutional: Constitutional: no acute distress Routine HEENT Exam: Head: Present atraumatic Eye: Present conjunctival injection, EOMI and normal appearance ENT: Present mucous membranes moist Routine Neck Exam: Neck: Present full ROM Routine Respiratory Exam: Respiratory: Present CTA bilaterally Routine Cardiovascular Exam: Cardiovascular: RRR Detailed Labor and Delivery Exam: Patient Gravid: yes Dilation (cm): 2 Effacement (%): 30 Cervix position: mid Consistency: medium Cervical ripeness score: 3 Fetus (Single): Station: -3 Amniotic Membrane Status: intact Heart Rate Baseline: 140 Monitor Accelerations: Present Monitor Decelerations: None Residential Variability: Moderate (6-25) Routine Extremities Exam: Extremities: Present full ROM Routine Back/Spine/Pelvis Exam: Back/Spine: full ROM Routine Skin Exam: Present intact Routine Neurological Exam: Present alert, oriented X3 and CN II-XII intact Routine Psychiatric Exam: Present normal affect and normal thought process OB - Results Labs Labs: Short CBC 10/30/24 Range/Units 17:58 WBC 8.61 (4.50-11.00) K/uL Hgb 12.1 (12.0-16.0) gm/dL Hct 36.5 (33.0-51.0) % Plt Count 289 (140-440) K/uL OB - Problem Based A/P Additional Plan (1) Term : Status: Acute (2) Rh negative status during : Status: Acute (3) History of shoulder dystocia: Status: Acute (4) Advanced maternal age (AMA) in : Status: Acute Plan 1. Cook catheter placed this evening. 2. Pitocin starting after midnight. 3. Likely continue pitocin for induction, AROM once able. 4. Patient desires epidural for analgesia. Delivery/Labor/Induction Plan Plan: induction Induction method: Intracervical balloon catheter (placed without difficulty 60 mL in both intrauterine and vaginal balloons. )
[2024-10-30 18:45] VITALS: BP 131/89; PULSE 106
[2024-10-30 20:44] VITALS: BP 120/76; PULSE 78; RESP 16; TEMP 36.6
[2024-10-31] VITALS (63 sets, daily range): BP systolic 82–135; BP diastolic 44–83; PULSE 77–121; RESP 13–20; TEMP 36.6–36.9; O2SAT 96–100
[2024-10-31] MEDS: OXYTOCIN 30 unit/500 ML in NS 30 UNIT/500 ML BAG IVPB (00:30)
[2024-10-31] MEDS: LACTATED RINGERS 1000 ML 1,000 ML 125 ML IV (00:30)
[2024-10-31] MEDS: LACTATED RINGERS 1000 ML 1,000 ML 120 ML IV (08:07)
--- NOTE | 2024-10-31 08:07 | PM.OBPNL ---
Subjective Date Seen: 10/31/24 Narrative: Nguyen is a 34 yo at 39 weeks here for IOL for AMA and history of shoulder dystocia. She had a cook placed last night and started pitocin after midnight. On removal of cook at 0630, cervix 4/50/-2. Underwent AROM with copious clear fluid at 0730. Contractions are now stronger and more regular, requesting epidural. Objective Vital Signs: Last Vital Signs Temp 97.8 F 10/31/24 07:18 Pulse 77 10/31/24 07:18 Resp 13 10/31/24 04:14 BP 123/69 10/31/24 07:18 Pelvic Exam Dilation (cm): 5 Effacement (%): 60 Station: -2 Contractions Monitor mode: External Contraction Frequency: 2 minutes Contraction pattern: Regular Contraction intensity: Moderate Pitocin Rate (mU/min): 4 Assessment Assessment: induction ongoing Station: -2 Amniotic Membrane Status: AROM Status: Category ll Heart Rate Baseline: 140 Monitor Accelerations: Present Monitor Decelerations: Variable Plan Plan: Continue pitocin per protocol. Epidural per patient request. Anticipate .
[2024-10-31] MEDS: LIDOCAINE 2% (PF) 5 ML VIAL EPIDURAL (08:22)
[2024-10-31] MEDS: ROPIVACAINE 0.2 % PF 10 ML INJ 20 MG EPIDURAL (08:22)
[2024-10-31] MEDS: ROPIVACAINE 0.2% 100 ml 100 ML 12 MG EPIDURAL (08:28)
[2024-10-31] MEDS: PHENYLEPHRINE 100 MCG/ML SYRINGE IVP ×3 (08:31→08:41)
--- NOTE | 2024-10-31 08:33 | PM.ANBPRC ---
[facility] Medical History History of depression ?Z87.59 - Personal history of other complications of , childbirth and the puerperium (ICD-10) ?Z86.59 - Personal history of other mental and behavioral disorders (ICD-10) History of vaginal delivery Missed (08/15/23) ?O02.1 - Missed (ICD-10) Surgical History History of dilatation and curettage (08/17/23) ?Z98.890 - Other specified postprocedural states (ICD-10) Family History Grandmother Breast cancer Father High blood pressure Sister Asthma Brother Asthma Social History What is your current living situation?: I presently have a place to live Problems where you live: no known problems In the past 12 months, utilities in danger of being shut off: no In past 12 months, lack of transportation kept you from medical appts, meetings, work, or getting things needed for daily living: no In the past 12 mos, have been you worried that your food would run out before you had money to buy more?: never true In the past 12 mos, the food you bought just didn't last and you didn't have money to buy more?: never true Smoking Status: Former smoker Do you use any of these nicotine containing products: None How often do you have a drink containing alcohol: monthly or less AUDIT-C Alcohol total score: 1 Non-prescribed substance use: denies use Caffeine: Yes How often does anyone, including family, friends and others, physically hurt you: never How often does anyone, including family, friends and others, insult or talk down to you: never How often does anyone, including family, friends and others, threaten you with harm: never How often does anyone, including family, friends and others, scream or curse at you: never Meds Home Medications and Allergies Home Medications ?Medication ?Instructions ?Recorded ?Confirmed ?Type albuterol sulfate 90 mcg/actuation 2 puff inhalation Q4H PRN 08/15/23 10/30/24 History aerosol inhaler (Ventolin HFA) cetirizine 10 mg tablet (Zyrtec) 10 mg PO QDAY PRN 08/15/23 10/30/24 History fluticasone 500 mcg-salmeterol 50 1 inh inhalation Q12H 08/15/23 10/30/24 History mcg/dose blistr powdr for inhalation montelukast 10 mg tablet 10 mg PO DAILY 08/15/23 10/30/24 History sumatriptan succinate 100 mg tablet 100 mg PO Q2H PRN migraine 08/15/23 10/30/24 History Held on 09/20/24. Instructions: meclizine 25 mg tablet 25 mg PO TID PRN 08/16/23 10/30/24 History prednisone 20 mg tablet 20 mg PO DAILY 08/16/23 10/30/24 History Held on 09/20/24. Instructions: asthma action plan Allergies Allergy/AdvReac Type Severity Reaction Status Date / Time No Known Drug Allergies Allergy Verified 09/20/24 17:30 Results Labs Labs: Laboratory Results - last 24 hr 10/30/24 17:58 WBC 8.61 RBC 4.19 Hgb 12.1 Hct 36.5 MCV 87 MCH 29 MCHC 33 RDW Coeff of Roman 13.4 Plt Count 289 Neut % (Auto) 65.0 Lymph % (Auto) 23.1 [place] % (Auto) 8.0 Eos % (Auto) 3.4 Baso % (Auto) 0.3 Neut # (Auto) 5.59 Lymph # (Auto) 1.99 [place] # (Auto) 0.70 Eos # (Auto) 0.29 Baso # (Auto) 0.03 Abs Immat Gran (auto) 0.02 Imm/Tot Granulo (auto) 0.2 Vital Signs Vital Signs: Last Vital Signs Temp 97.8 F 10/31/24 07:18 Pulse 83 10/31/24 08:31 Resp 13 10/31/24 04:14 BP 82/45 L 10/31/24 08:31 Pulse Ox 99 10/31/24 08:31 Weight: 237.5 kg Height: 4.24 m Anesthesia Procedures Epidural Insertion Patient Location: OB Start Time: 08:00 Stop Time: 08:34 Start Date: 10/31/24 Stop Date: 10/31/24 Reason for Block: procedure for pain Patient Position: sitting Performed By: Yony Donnelly Preanesthetic Checklist: IV checked, risks and benefits discussed, surgical consent, monitors and equipment checked, pre-op evaluation, timeout performed and anesthesia consent Prep: chlorhexidine gluconate Monitoring: blood pressure monitoring, continuous pulse oximetry and heart rate Approach: midline Vertebral Space: lumbar (1-5) Epidural Technique: RENETTA air Needle Type: Tuohy needle Injection Technique: continuous catheter Needle gauge: 17 Needle Length (cm): 10 cm Needle Insertion Depth (cm): 6 Catheter Gauge: 19 Catheter Type: multi-orifice Catheter at skin depth (cm): 13 Test Dose Result: negative and lidocaine 1.5% with epinephrine 1 to 200,000
[2024-10-31] MEDS: ePHEDrine sulfate 5 MG/ML inj 10 MG IVP ×2 (08:52→09:24)
[2024-10-31] MEDS: LACTATED RINGERS 1000 ML 1,000 ML 1120 ML IV (09:03)
--- NOTE | 2024-10-31 12:02 | W.PM.VAGDEL1 ---
Procedure Delivery date: 10/31/24 Procedure Done: Global Events: AMA Intrapartal Events: None Delivery augmentation: rupture of membranes Delivery monitor: external FHT and external uterine Route of delivery: Laceration description: Perineal - 1st Degree Delivery repair: Vicryl Estimated blood loss (mL): 250 Anesthesia type: Epidural Disposition: floor Narrative: The patient is a 34 year-old admitted on 10/30/2024 at 38 Weeks, 6 Days gestation for cervical ripening prior to IOL for AMA and prior shoulder dystocia.? Cervical exam on admission was 2 cm/30 % effaced/-3 station with membranes intact in vertex presentation.? Contractions were absent.? heart rate demonstrated baseline 140 bpm with moderate variability, + accelerations, - decelerations; a category 1 tracing.?Patient underwent cook catheter placement at 1830 and Pitocin started at 0030. AROM occurred at 0731 with copious, clear fluid. Subsequently contractions intensified and she requested an epidural. ? Labor Analgesia:? epidural ? Pitocin:? yes ? Labor onset:? 0758 ? Complete:? 1124 ? Pushing:? 1128 ? heart tones during second stage were category 2. ? At 1130 a viable female delivered in vertex OA presentation over intact perineum via spontaneous vaginal delivery.? Infant was placed on maternal abdomen.? Cord was clamped and cut after a 30-60 second delay.? Nose and mouth were bulb suctioned.? weight pending.? 8 at 1 minute and 9 at 5 minutes.? Shoulder dystocia: no.? Nuchal cord: no. ? Placenta delivered spontaneously and complete at 1134 with a 3 vessel cord. ? Mother and were stable after delivery. ? Lacerations:? 1st degree perineal, repaired with 3-0 vicryl suture. ? Blood loss: 250 mL. Blood loss measurement type: EBL ? Sponge and needles counts are correct. [place] Infant Infant Gender: Female presentation: vertex Placental Delivery Description: Spontaneous Cord Description: 3 Vessels
--- NOTE | 2024-10-31 13:46 | PM.ANPOST ---
Post Anesthesia Note Post Anesthesia Note Patient seen: Inpatient Respiratory Status: adequate Cardiovascular Status: adequate Mental Status: baseline Pain: adequate Temp: baseline Anesthetic awareness: N/A Complications: none Follow care: none
[2024-10-31] MEDS: IBUPROFEN 600 MG TABLET PO ×2 (15:55→22:20)
[2024-10-31] MEDS: ACETAMINOPHEN 500 MG TABLET 1000 MG PO (21:11)
[2024-11-01 00:17] VITALS: BP 125/76; PULSE 94; RESP 16; TEMP 36.9; O2SAT 97
[2024-11-01 04:08] VITALS: BP 120/79; PULSE 78; RESP 16; TEMP 37.3; O2SAT 96
[2024-11-01] MEDS: ACETAMINOPHEN 500 MG TABLET 1000 MG PO (04:43)
[2024-11-01 06:46] LABS: Hemoglobin* 11.5 gm/dL (12.0-16.0)
[2024-11-01 07:45] VITALS: BP 143/92; PULSE 92; RESP 16; TEMP 36.5; O2SAT 97
[2024-11-01] MEDS: DOCUSATE SODIUM 100 MG CAPSULE PO (08:04)
[2024-11-01] MEDS: IBUPROFEN 600 MG TABLET PO (08:04)
[2024-11-01 08:30] VITALS: BP 122/82
--- NOTE | 2024-11-01 13:12 | P.DS_ITS ---
DS: Providers Provider Date Seen: 11/01/24 Date of admission: 10/30/24 17:09 Primary care physician: Celena Lemus MD Admitting Clinician: Celena Lemus MD Attending Physician on discharge: Lili Madison DO Date of Discharge: 11/01/24 Exam Const: Vital Signs, click to edit/add: Vital Signs - 24 hr 10/31/24 13:22 10/31/24 17:11 10/31/24 20:00 Temperature 98.3 F 98.0 F Pulse Rate 114 H Pulse Rate [Pulse Oximeter] Respiratory Rate 18 20 Blood Pressure 129/79 Blood Pressure [Ri ght Arm] 130/83 121/80 Pulse Oximetry 97 98 Oxygen Delivery Me thod Room Air Room Air 11/01/24 00:17 11/01/24 04:08 11/01/24 07:45 Temperature 98.4 F 99.1 F 97.7 F Pulse Rate Pulse Rate [Pulse Oximeter] 94 78 92 Respiratory Rate 16 16 16 Blood Pressure Blood Pressure [Ri ght Arm] 125/76 120/79 143/92 H Pulse Oximetry 97 96 97 Oxygen Delivery Me thod Room Air Room Air Room Air 11/01/24 08:30 Temperature Pulse Rate Pulse Rate [Pulse Oximeter] Respiratory Rate Blood Pressure Blood Pressure [Ri ght Arm] 122/92 H Pulse Oximetry Oxygen Delivery Me thod OB - DS: Summary Hospital Course Hospital Course: The patient is a 34 year-old admitted on 10/30/2024 at 38 Weeks, 6 Days gestation for cervical ripening prior to IOL for AMA and prior shoulder dystocia.? Cervical exam on admission was 2 cm/30 % effaced/-3 station with membranes intact in vertex presentation.? Contractions were absent.? heart rate demonstrated baseline 140 bpm with moderate variability, + accelerations, - decelerations; a category 1 tracing.?Patient underwent cook catheter placement at 1830 and Pitocin started at 0030. AROM occurred at 0731 with copious, clear fluid. Subsequently contractions intensified and she requested an epidural. At 1130 on 10/31/24, a viable female delivered in vertex OA presentation over intact perineum via spontaneous vaginal delivery.? was placed on maternal abdomen.? Cord was clamped and cut after a 30-60 second delay.? Nose and mouth were bulb suctioned.? weight pending.? 8 at 1 minute and 9 at 5 minutes.? Shoulder dystocia: no.? Nuchal cord: no. ? Placenta delivered spontaneously and complete at 1134 with a 3 vessel cord. She had a 1st degree perineal, repaired with 3-0 vicryl suture. Post-, patient has done well. Pain controlled with Tylenol and ibuprofen. Lochia appropriate. Ambulating independently. Working on establishing . [place] Gender: Female Time Spent with Patient Time attestation: Total time spent providing and/or coordinating discharge services: Time spent: Greater than 30 minutes Discharge Plan Discharge Disposition: Home, Self-Care Date of Admission: 10/30/24 17:09 Attending Provider on Discharge: Lili Madison Primary Care Provider: Celena Lemus Condition: Stable Anticipated Discharge Date/Time: 11/01/24 14:00 Discharge Medications: New acetaminophen 500 mg Tablet 1,000 mg PO Q6H PRNQty: 80 0RF ibuprofen 600 mg Tablet 600 mg PO Q6H PRNQty: 40 0RF Continued fluticasone propion-salmeterol 500-50 mcg/dose blister with device 1 inh inhalation Q12H Patient Comments: [NO ORIGINAL SIG] albuterol sulfate [Ventolin HFA] 90 mcg/actuation HFA aerosol inhaler 2 puff inhalation Q4H PRN sumatriptan succinate 100 mg tablet 100 mg PO Q2H PRN (Reason: migraine) montelukast 10 mg tablet 10 mg PO DAILY cetirizine [Zyrtec] 10 mg tablet 10 mg PO QDAY PRN meclizine 25 mg tablet 25 mg PO TID PRN prednisone 20 mg tablet 20 mg PO DAILY Rx Instructions: days 11-21 of therapy Discharge Orders: Discharge Order (Routine); Ordered 11/01/24 Ordered By: Lili Madison Patient Education: OB Over the Counter Medication Information, OB Vaginal/Breast Feeding Activity Level: Activity as Tolerated Discharge Diet: Regular Follow Up Appointments: Celena Lemus MD [Primary Care Provider, Family Practice] Forms: MyHealth Info Instructions Discharge Comments: Follow up with primary OB for routine post- follow up in 6 weeks.
== END 2024-11-01 14:55 | disposition home or self-care (01) | DRG 807 ==
PROVIDERS: Admitting Provider Family Medicine; PCP Family Medicine; Visit Provider Family Medicine
DX: O26.893 Other specified pregnancy related conditions, third trimester (principal); Z37.0 Single live birth; Z67.11 Type A blood, Rh negative; O70.0 First degree perineal laceration during delivery; Z3A.38 38 weeks gestation of pregnancy
CPT/HCPCS: 01967; 36415; 59200; 85018; 85025; 86592; A9270; C1726; J2270; J2795; J7120

== ENCOUNTER 2024-11-06 15:02 | Outpatient (CLI) | payer OTHER, SELFPAY ==
--- NOTE | 2024-11-06 17:23 | W.PM.LAC.MC ---
Consult Note - Mom Date of Visit Date of visit: 11/06/24 Reason for consultation: Assistance Needed, Infant Weight Concern and Other (infant not latching) Visit Code: Visit Patient's Information Phone number: [phone] : 4 Para: 3 Allergies No Known Drug Allergies Allergy (Verified 09/20/24 17:30) Mother's Medical History: Medical History (Updated 10/30/24 @ 18:55 by Celena Lemus MD) History of depression ?Z87.59 - Personal history of other complications of , childbirth and the puerperium (ICD-10) ?Z86.59 - Personal history of other mental and behavioral disorders (ICD-10) History of vaginal delivery Missed (08/15/23) ?O02.1 - Missed (ICD-10) Delivery Information Delivery type: Vaginal Gestational Age: 39 Gestational Weight For Age: AGA Weight: 3.51 kg Discharge Weight: 3.32 kg Percentage weight loss: 5.5 Baby's Information Baby's Age at Visit: 6 days Baby's Provider or Clinic: Dr. Allan Felix Jaundice: Yes Past Experience Past Experience: Yes Current Frequency of Day Feedings: every 2 hrs since yesterday, at 10.4% wt loss Frequency of Night Feedings: same Both Breasts: Yes (not latching) Suck: none Latch: will put nipple/breast in mouth but not suck Length of Time: a few minutes Goals: at least 1 year Pumping Pumping: Yes Quantity Pumped: 4 oz every 2 hrs Supplementing EBM Supplement: Yes (taking 2 oz every 2 hrs since yesterday afternoon for weight loss) Formula Supplement: No Baby Elimination Number of Wet Diapers a Day: 4 so far today Number of BM a Day: 2 so far today Breast/Nipple Condition Breast Information: Breasts are symmetrical with rounded lower quadrants, intramammary distance is less than 1.5 inches. No erythema. Nipples are supple, everted prior to feeding. Breast Shape: Round and Pliable Engorgement: No Maternal Nipple Condition - Left: Common Nipple Maternal Nipple Condition - Right: Common Nipple Sore Nipples: No Baby Assessment Skin: Yellow (to belly button, legs are pink) Tongue/frenulum: Normal/elastic Palate: Average Lips: Relaxed and Symmetrical Jaw Alignment: Symmetrical Mucosa: [place], moist Onsite Observation Pre-Feed weight: 3.236 kg Position: Cross cradle Attachment/latch-on achieved: With difficulty and Not achieved Suck pattern: Latched, but no sucking, audible swallows Swallow: None Behavior following feed: Relaxed, sleepy Pre-Nursing Left Nipple: Within Normal Limits Pre-Nursing Right Nipple: Within Normal Limits Assessments/Interventions Assessments/Interventions: Worked with mom and reviewed asymmetrical latch technique for a wide, deep latch when baby will latch. Continue offering breast feeding with as many feedings as able for when it clicks with Annmarie. Skin to skin throughout the day Continue to pump to maintain supply Baby has a weak suck; may be due to weight loss and mild jaundice Suck training exercises given to help organize suck when baby is more alert Education provided: Early feeding cues to maximize timing of latching, Asymmetric latch technique for wide/deep latch to increase milk, Transfer for baby and increase comfort for mom, Supply/demand nature of milk supply, Need for frequent stimulation/milk removal, Use of nipple shield (can use if desires, not helping baby latch at this point), Pumping for milk management and Milk collection, storage Feeding Plan: Attempt on each breast, listening for active swallowing Pump both breasts for: 15-20 minutes if baby won't latch to the breast Feed baby 60-75 ml of pumped milk a every 2-3 hours based on feeding cues Use a syringe/feeding tube, cup, or bottle for feedings based on preference Discussed paced bottle feeding Rest, and repeat every 2-3 hours, watch for early feeding cues Try skin to skin to increase milk production and encourage latching Can try giving baby 1 oz via bottle and then switching to Follow-Up Suggested follow up: Appointment as needed (for ongoing support) Recommend baby be seen by provider for:: has weight check tomorrow with Dr. Lemus Time Spent Time spent with patient (min): 80 Meds Home Medications and Allergies Home Medications ?Medication ?Instructions ?Recorded ?Confirmed ?Type albuterol sulfate 90 mcg/actuation 2 puff inhalation Q4H PRN 08/15/23 10/30/24 History aerosol inhaler (Ventolin HFA) cetirizine 10 mg tablet (Zyrtec) 10 mg PO QDAY PRN 08/15/23 10/30/24 History fluticasone 500 mcg-salmeterol 50 1 inh inhalation Q12H 08/15/23 10/30/24 History mcg/dose blistr powdr for inhalation montelukast 10 mg tablet 10 mg PO DAILY 08/15/23 10/30/24 History sumatriptan succinate 100 mg tablet 100 mg PO Q2H PRN migraine 08/15/23 10/30/24 History meclizine 25 mg tablet 25 mg PO TID PRN 08/16/23 10/30/24 History prednisone 20 mg tablet 20 mg PO DAILY 08/16/23 10/30/24 History acetaminophen 500 mg tablet 1,000 mg (2 x 500 mg) PO Q6H PRN 11/01/24 Rx #80 tabs ibuprofen 600 mg tablet 600 mg PO Q6H PRN #40 tabs 11/01/24 Rx Allergies Allergy/AdvReac Type Severity Reaction Status Date / Time No Known Drug Allergies Allergy Verified 09/20/24 17:30
== END 2024-11-06 15:03 | disposition home or self-care (01) ==
LOC: OB LAC 15:04
PROVIDERS: PCP Family Medicine; Visit Provider Obstetrics & Gynecology
DX: Z39.1 Encounter for care and examination of lactating mother (principal)
CPT/HCPCS: G0463